=== PATIENT | female | born 1970 | race Caucasian/White ===

== ENCOUNTER 2017-06-15 09:36 | Emergency (ER) | payer SELFPAY ==
[~2017-06-15] VITALS: Ht 154.9 cm; Wt 70.0 kg
[~2017-06-15 09:36] MED LIST: CITA40TA4 PO; CLOT10TR PO; DICY10CA12 PO; FLUT50SP EACH NARE; HYDR12.57 PO; IPRASOL INH; LOSA50TA PO; MONT10TA2 PO; SYMB160A INH; TRAZ50TA12 PO
[2017-06-15 09:40] VITALS: BP 126/79; PULSE 105; RESP 20; TEMP 98.3; O2SAT 96
--- NOTE | 2017-06-15 10:07 | PD ---
HPI Chief Complaint: Respiratory Symptoms Time Seen by Provider: 10:07 Travel History International Travel<30 days: No Contact w/Intl Traveler<30days: No Traveled to known affect area: No History of Present Illness HPI 47-year-old female came to the emergency room with history of cough and shortness of breath that's progressively worsening for past 3 days. She has history of COPD. She smokes one pack a day for many years. She has inhalers and nebulizer which as per her she has used but has not helped. She says that for past 3 months she has been coughing some blood as well. He her mucous is more yellowish in color. No history of fever or chills. Vital signs were relatively stable. Patient has never been hospitalized for her COPD. No known sick contacts. No history of chest pain. No recent long distance travel or prolonged hospitalization. [facility] Past Medical History Narrative Medical List of her past medical, surgical, social and family history is reviewed from the nursing note. Respiratory: Yes Social History Tobacco Use: Yes Allergies-Medications (Allergen,Severity, Reaction): Coded Allergies: fluticasone furoate (Verified Allergy, Severe, anaphylaxis, 01/27/17) levofloxacin (Verified Allergy, Severe, anaphylaxsis, 01/27/17) lisinopril (Verified Allergy, Severe, anaphylaxis, 01/27/17) vilanterol (Verified Allergy, Severe, anaphylaxis, 01/27/17) nystatin (Verified Allergy, Intermediate, rash, 01/27/17) Comments List of allergies reviewed from the nursing note. Reported Meds & Prescriptions Reported Meds & Active Scripts Active Zithromax Z-Justice (Azithromycin) 250 Mg Dspk 250 Mg PO DIRECTED 500 MG (2 tabs) day 1, then 1 tab days 2-5. Prednisone 20 Mg Tab 20 Mg PO BID 5 Days Symbicort Inh (Budesonide/Formoterol Fumarate) 160-4.5 Mcg/Act Aero 2 Puff INH Q12HR Losartan (Losartan Potassium) 50 Mg Tab 50 Mg PO DAILY Hydrochlorothiazide 12.5 Mg Cap 12.5 Mg PO DAILY Citalopram (Citalopram Hydrobromide) 40 Mg Tab 40 Mg PO DAILY Duoneb (Ipratropium-Albuterol Neb) 0.5-2.5 Mg/3 Ml Neb 1 Nebule INH Q4HR NEB Singulair (Montelukast Sodium) 10 Mg Tab 10 Mg PO HS Reported Dicyclomine (Dicyclomine HCl) 10 Mg Cap 10 Mg PO QID Fluticasone Nasal [place] 50 Mcg/Act Naspr 50 Mcg EACH NARE DAILY 50 mcg/spray Trazodone (Trazodone HCl) 50 Mg Tab 50 Mg PO HS Narrative Medication List of her home medications reviewed from the nursing note. Review of Systems Except as stated in HPI: all other systems reviewed are Neg Respiratory: Positive: Cough, Shortness of Breath Physical Exam Narrative GENERAL: Awake, alert, mild distress SKIN: Focused skin assessment warm/dry. HEAD: Atraumatic. Normocephalic. EYES: Pupils equal and round. No scleral icterus. No injection or drainage. ENT: No nasal bleeding or discharge. Mucous membranes pink and moist. NECK: Trachea midline. No JVD. CARDIOVASCULAR: Regular rate and rhythm. No murmur appreciated. RESPIRATORY: No accessory muscle use. Decreased air entry bilaterally with end expiratory wheeze GASTROINTESTINAL: Abdomen soft, non-tender, nondistended. Hepatic and splenic margins not palpable. MUSCULOSKELETAL: No obvious deformities. No clubbing. No cyanosis. No edema. NEUROLOGICAL: Awake and alert. No obvious cranial nerve deficits. Motor grossly within normal limits. Normal speech. PSYCHIATRIC: Appropriate mood and affect; insight and judgment normal. Data Data Last Documented VS Orders Orders Electrocardiogram (06/15/17 ) Complete Blood Count With Diff (06/15/17 10:21) Basic Metabolic Panel (Bmp) (06/15/17 10:21) B-Type Natriuretic Peptide (06/15/17 10:21) Prothrombin Time / Inr (Pt) (06/15/17 10:21) Troponin I (06/15/17 10:21) Blood Culture (06/15/17 10:21) Iv Access Insert/Monitor (06/15/17 10:21) Ecg Monitoring (06/15/17 10:21) Oximetry (06/15/17 10:21) Oxygen Administration (06/15/17 10:21) Chest, Single Ap (06/15/17 10:21) Sodium Chloride 0.9% Flush (Ns Flush) (06/15/17 10:30) Methylprednisolone So Succ Inj (Solumedr (06/15/17 10:30) Albuterol-Ipratropium Neb (Duoneb Neb) (06/15/17 10:30) Ed Discharge Order (06/15/17 12:10) Labs Laboratory Tests Test 06/15/17 10:35 White Blood Count 10.0 TH/MM3 Red Blood Count 4.92 MIL/MM3 Hemoglobin 16.3 GM/DL Hematocrit 46.6 % Mean Corpuscular Volume 94.7 FL Mean Corpuscular Hemoglobin 33.1 PG Mean Corpuscular Hemoglobin Concent 34.9 % Red Cell Distribution Width 14.9 % Platelet Count 300 TH/MM3 Mean Platelet Volume 8.7 FL Neutrophils (%) (Auto) 72.7 % Lymphocytes (%) (Auto) 18.1 % Monocytes (%) (Auto) 5.7 % Eosinophils (%) (Auto) 2.4 % Basophils (%) (Auto) 1.1 % Neutrophils # (Auto) 7.2 TH/MM3 Lymphocytes # (Auto) 1.8 TH/MM3 Monocytes # (Auto) 0.6 TH/MM3 Eosinophils # (Auto) 0.2 TH/MM3 Basophils # (Auto) 0.1 TH/MM3 CBC Comment DIFF FINAL Differential Comment Prothrombin Time 10.0 SEC Prothromb Time International Ratio 1.0 RATIO Blood Urea Nitrogen 9 MG/DL Creatinine 0.83 MG/DL Random Glucose 87 MG/DL Calcium Level 8.4 MG/DL Sodium Level 139 MEQ/L Potassium Level 5.0 MEQ/L Chloride Level 106 MEQ/L Carbon Dioxide Level 25.1 MEQ/L Anion Gap 8 MEQ/L Estimat Glomerular Filtration Rate 74 ML/MIN Troponin I LESS THAN 0.02 NG/ML B-Type Natriuretic Peptide 20 PG/ML MDM Medical Decision Making Medical Screen Exam Complete: Yes Emergency Medical Condition: Yes Medical Record Reviewed: Yes Interpretation(s) Twelve-lead EKG was reviewed by me. Sinus rhythm, normal axis, nonspecific ST- T wave changes. Heart rate of 77 bpm. Differential Diagnosis COPD exacerbation, pneumonia, bronchitis, ACS, CHF Narrative Course 12:40 PM blood test results are back. Troponin and BNP are within normal limit. Patient was initially given 3 duo nebs upon arrival and IV Solu-Medrol. I reassessed her and air entry is better. Patient says that she is feeling better. I gave her recommendation to quit smoking. Patient will be discharged home. She'll go home with prescriptions. Procedures EKG Prior to Arrival: No Diagnosis Primary Impression: Acute exacerbation of chronic obstructive pulmonary disease (COPD) Additional Impressions: Respiratory distress Needs smoking cessation education Referrals: Primary Care Physician Additional Instructions: Take the medication as per the prescription direction. You need to quit smoking in order to feel better. Return to the ER if condition worsens or any other new concerns. Otherwise follow-up with your primary care. Med/Other Pt SpecificInfo: Prescription(s) given Scripts Azithromycin (Zithromax Z-Justice) 250 Mg Dspk 250 MG PO DIRECTED for Infection, #1 DSPK 0 Refills 500 MG (2 tabs) day 1, then 1 tab days 2-5. Prov: Pedro Escalante MD 06/15/17 Prednisone (Prednisone) 20 Mg Tab 20 MG PO BID for 5 Days, #10 TAB 0 Refills Prov: Pedro Escalante MD 06/15/17 Disposition: 01 DISCHARGE HOME Condition: Stable Pedro Escalante MD Jun 15, 2017 10:07
[2017-06-15 10:23] VITALS: RESP 18; O2SAT 98
[2017-06-15] MEDS ORDERED: SODIUM CHLORIDE 0.9% FLUSH 10 ML FLUSH IVF PRN (10:30)
[2017-06-15] MEDS ORDERED: methylPREDNISolone SOD SUCC 125 MG/2 ML VIAL IV PUSH ONE (10:30)
[2017-06-15] MEDS: RESP: ALBUTEROL 2.5 MG/IPRATROPIUM 0.5 MG NEB (SCH) INH (10:38)
[2017-06-15 10:40] VITALS: BP 159/83; PULSE 95; RESP 18; O2SAT 98
[2017-06-15 10:43] LABS: AUTOMATED NEUTROPHIL # 7.2 TH/MM3 (1.8-7.7); BASOPHIL # 0.1 TH/MM3 (0-0.2); BASOPHIL % 1.1 % (0.0-2.0); EOSINOPHIL # 0.2 TH/MM3 (0-0.4); EOSINOPHIL % 2.4 % (0.0-4.0); HEMATOCRIT 46.6 % (35.0-46.0); HEMOGLOBIN 16.3 GM/DL (11.6-15.3); LYMPH % 18.1 % (9.0-44.0); LYMPHOCYTE # 1.8 TH/MM3 (1.0-4.8); MEAN CELL VOLUME 94.7 FL (80.0-100.0); MEAN CORPUSCULAR HEMOGLOBIN 33.1 PG (27.0-34.0); MEAN CORPUSCULAR HGB CONC 34.9 % (32.0-36.0); MEAN PLATELET VOLUME 8.7 FL (7.0-11.0); MONO % 5.7 % (0.0-8.0); MONOCYTE # 0.6 TH/MM3 (0-0.9); NEUT % 72.7 % (16.0-70.0); PLATELET COUNT 300 TH/MM3 (150-450); RED BLOOD COUNT 4.92 MIL/MM3 (4.00-5.30); RED CELL DISTRIBUTION WIDTH 14.9 % (11.6-17.2)
--- NOTE | 2017-06-15 10:50 | RADRPT ---
EXAM DATE/TIME: 06/15/2017 10:31 [place] COMPARISON: No previous studies available for comparison. INDICATIONS : Shortness of breath with wheezing. MEDICAL HISTORY : Chronic obstructive pulmonary disease. SURGICAL HISTORY : None. ENCOUNTER: Initial ACUITY: 2 days PAIN SCORE: 0/10 LOCATION: Bilateral chest FINDINGS: A single view of the chest demonstrates the lungs to be symmetrically aerated without evidence of mas s, infiltrate or effusion. The cardiomediastinal contours are unremarkable. Osseous structures are intact. CONCLUSION: No acute disease. Vick Nair MD on June 15, 2017 at 10:46 Board Certified Radiologist. This report was verified electronically.
[2017-06-15 11:08] LABS: TROPONIN I LESS THAN 0.02 NG/ML (0.02-0.05)
[2017-06-15 11:20] LABS: BICARBONATE 25.1 MEQ/L (21.0-32.0); BLOOD UREA NITROGEN 9 MG/DL (7-18); CALCIUM 8.4 MG/DL (8.5-10.1); CHLORIDE 106 MEQ/L (98-107); CREATININE 0.83 MG/DL (0.50-1.00); GLOMERULAR FILTRATION RATE 74 ML/MIN (>89); GLUCOSE,RANDOM 87 MG/DL (74-106); SODIUM (NA) 139 MEQ/L (136-145)
[2017-06-15] MEDS ORDERED: PRED20 PO (12:10)
[2017-06-15] MEDS ORDERED: ZITHTAB PO (12:10)
--- NOTE | 2017-06-15 14:35 | EKG ---
Date Performed: 06/15/2017 Time Performed: 10:18:16 PTAGE: 47 years EKG: Sinus rhythm NORMAL ECG NO PREVIOUS TRACING DOCTOR: Hubert Reynolds Interpretating Date/Time 06/15/2017 14:33:28
== END 2017-06-15 12:26 | disposition home or self-care (01) ==
LOC: NEPE 09:36
DX: J44.1 Chronic obstructive pulmonary disease with (acute) exacerbation (principal); F17.200 Nicotine dependence, unspecified, uncomplicated; Z79.899 Other long term (current) drug therapy; Z88.8 Allergy status to other drugs, medicaments and biological substances; Z79.52 Long term (current) use of systemic steroids
CPT/HCPCS: 71045; 80048; 83880; 84484; 85025; 85610; 87040; 93005; 94664; 96374; 99284; J2930